=== PATIENT | male | born 1935 | race Caucasian/White ===

== ENCOUNTER → 2021-06-12 | Outpatient (CLI) | payer MEDICARE, BC ==
--- NOTE | 2021-06-12 10:01 | FL ---
EXAMINATION TYPE: FL barium swallow DATE OF EXAM: 06/12/2021 CLINICAL INDICATION: 85-year-old male R13.10, dysphagia. COMPARISON: None Total Fluoroscopy Time: 2 minutes 34 seconds 63 images obtained. FINDINGS: Assessment of the cervical esophagus shows an episode of deep penetration but without aspiration. The re is asymmetric pooling of contrast into the right side of the mouth. 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 Intermittent contraction is noted of the cricopharyngeus but with out any fixed spasm. The frontal swallowing view shows asymmetric movement of most of the contrast do wn the right piriform sinus. This likely due to the anatomic asymmetry relating to the patient's inju ry. The thoracic portion has a normal course and caliber. There is very minimal age-related tertiary quin staltic contractions. The mucosa is normal and no persistent filling defect is encountered. There is a small hiatal hernia noted. Gastroesophageal reflux could not be elicited during the course of the exam. IMPRESSION: 1. 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 Asymmetric pooling of contrast in the right side of the mouth and asymmet fauzia passage of contrast down the right side of the hypopharynx likely accounts for this anatomic asym metry. If there is concern for any extrinsic mass effect such as from an enlarged thyroid gland, a th yroid ultrasound can be considered. 2. An episode of deep penetration but without aspiration. 3. Small hiatal hernia. No gastroesophageal reflux. No mucosal lesion seen.
== END | disposition home or self-care (01) ==
LOC: RADUSWWP 08:48
PROVIDERS: ATTEND Otolaryngology
DX: R13.10 Dysphagia, unspecified (principal)
CPT/HCPCS: 74220

== ENCOUNTER → 2024-04-22 | Outpatient (CLI) | payer MEDICARE ==
--- NOTE | 2024-04-22 13:47 | US ---
EXAMINATION TYPE: US venous doppler duplex LE BI DATE OF EXAM: 04/22/2024 1:12 PM COMPARISON: NONE CLINICAL INDICATION: Male, 88 years old with history of R60.0 Edema; M79.66; edema. Pain and swelling in left leg, Pain TECHNIQUE: The lower extremity deep venous system is examined utilizing real time linear array sonog romie with graded compression, color doppler sonography, and spectral doppler. SIDE PERFORMED: Bilateral FINDINGS: VESSELS IMAGED: Common Femoral Vein Deep Femoral Vein Greater Saphenous Vein * Femoral Vein Popliteal Vein Small Saphenous Vein * Proximal Calf Veins (* superficial vessels) Right Leg: No evidence for DVT, Color Doppler imaging shows patency of the vessels. Spectral wavefor ms are within normal limits. Left Leg: Echoes seen from the CFV to the prox popliteal vein. No compression or blood flow seen, Co crow Doppler imaging shows patency of the mid and distal left popliteal vein and left calf vein. Spect ral waveforms are within normal limits for the distal left popliteal vein. IMPRESSION: 1. Positive for deep venous thrombosis involving the left lower extremity extending from the common femoral vein to the proximal popliteal vein. 2. No evidence of deep vein thrombosis of the right lower extremity. A Red level critical message alert has been initiated for Ori Kirby MD via the [email or web address] Critical Results System on 04/22/2024 1:44 PM. This message alert has been sent to Ori nice MD via the preferences provided by the clinician for the receipt of Radiology Critical Findings. Ashanti essage ID [id number]. [facility], , 04/22/2024 1:44 PM
== END | disposition home or self-care (01) ==
LOC: RADUSWWP 13:11
PROVIDERS: ATTEND Family Medicine
DX: R60.0 Localized edema (principal); I82.412 Acute embolism and thrombosis of left femoral vein
CPT/HCPCS: 93970